=== PATIENT | female | born 1970 | race American Indian/Alaskan Native ===

== ENCOUNTER 2017-02-24 23:02 | Emergency (ER) | payer MEDICAID, OTHER ==
[2017-02-24 23:09] VITALS: BP 118/51
--- NOTE | 2017-02-24 23:12 | EDM.PDOC ---
ED HISTORY OF PRESENT ILLNESS - General Chief Complaint: Respiratory Problem Stated Complaint: AMB Time Seen by Provider: 02/24/17 23:09 Source of Information: Reports: Patient History Limitations: Reports: No limitations - History of Present Illness INITIAL COMMENTS - FREE TEXT/NARRATIVE: c/o sob tonight chest hurts especially when coughing some body aches feels feverish but not taken temp, also throat hurts too. EMS gave neb en route Pt's Sx relieved. - Related Data Allergies/ADRs: Allergies Allergy/AdvReac Type Severity Reaction Status Date / Time No Known Allergies Allergy Verified 02/24/17 23:02 Social & Family History - Tobacco Use Smoking Status *Q: Heavy Tobacco Smoker Years of Tobacco use: 10 Packs/Tins Daily: 1 - Caffeine Use Caffeine Use: Reports: Energy drinks - Recreational Drug Use Recreational Drug Use: No ED ROS GENERAL - Review of Systems Review Of Systems: ROS reveals no pertinent complaints other than HPI. ED EXAM, GENERAL - Physical Exam Exam: See Below Exam Limited By: No limitations General Appearance: alert, WD/WN, anxious, mild distress Ears: hearing grossly normal Throat/Mouth: Normal voice, No airway compromise Head: atraumatic Neck: non-tender, full range of motion Respiratory/Chest: no respiratory distress, no accessory muscle use, rhonchi, wheezing Cardiovascular: regular rate, rhythm GI/Abdominal: soft, non tender Neurological: alert, oriented, normal cognition, normal gait, no motor/sensory deficits Psychiatric: normal affect, normal mood, anxious Skin Exam: Warm, Dry Lymphatic: no adenopathy Course - Vital Signs Last Recorded V/S: Last Vital Signs Temp 35.9 C 02/24/17 23:03 Pulse 93 02/24/17 23:03 Resp 22 H 02/24/17 23:03 BP 118/51 L 02/24/17 23:03 Pulse Ox 96 02/24/17 23:03 - Orders/Labs/Meds Orders: Active Orders 24 hr Category Date Time Status EKG Documentation Completion [RC] STAT Care 02/24/17 23:06 Active CULTURE STREP A CONFIRMATION [RM] Stat Lab 02/24/17 23:06 Results STREP SCRN A RAPID W CULT CONF [] Stat Lab 02/24/17 23:06 Results methylPREDNISolone Sod Succ [Solu-MEDROL] Med 02/25/17 00:31 Once 125 mg IVPUSH ONETIME ONE Labs: Laboratory Tests 02/24/17 02/24/17 02/24/17 Range/Units 23:13 23:13 23:13 WBC 9.2 (5.0-10.0) 10^3/uL RBC 4.67 (4.2-5.4) 10^6/uL Hgb 10.7 L (12.0-16.0) g/dL Hct 35.6 L (37.0-47.0) % MCV 76.2 L (80-100) fL MCH 22.9 L (27.0-34.0) pg MCHC 30.1 L (33.0-35.0) g/dL Plt Count 389 (150-450) 10^3/uL Neut % (Auto) 64.3 (42.2-75.2) % Lymph % (Auto) 25.6 (20.5-50.1) % [place] % (Auto) 7.2 (2-8) % Eos % (Auto) 2.7 (1.0-3.0) % Baso % (Auto) 0.2 (0.0-1.0) % D-Dimer, Quantitative < 100 (0-400) ng/mL Sodium 142 (135-145) mmol/L Potassium 3.9 (3.6-5.0) mmol/L Chloride 105 (101-111) mmol/L Carbon Dioxide 28.0 (21.0-31.0) mmol/L Anion Gap 12.9 BUN 13 (7-18) mg/dL Creatinine 0.8 (0.6-1.3) mg/dL Est Cr Clr Drug Dosing 70.24 mL/min Estimated GFR (MDRD) > 60 BUN/Creatinine Ratio 16.25 Glucose 117 H (74-105) mg/dL Calcium 8.7 (8.4-10.2) mg/dl Total Bilirubin 0.3 (0.2-1.0) mg/dL AST 23 (10-42) IU/L ALT 18 (10-60) IU/L Alkaline Phosphatase 79 (42-121) IU/L Troponin I < 0.02 (0.00-0.02) ng/ml B-Natriuretic Peptide 13 (0-100) pg/ml Total Protein 7.5 (6.7-8.2) g/dl Albumin 3.6 (3.2-5.5) g/dl Globulin 3.9 Albumin/Globulin Ratio 0.92 - Re-Assessments/Exams Free Text/Narrative Re-Assessment/Exam: 02/25/17 00:31 results discussed with Pt who states she usually get IM steroids. also she forgot to take her neb machine to work tonight and asthma got worse. but feels better now. Departure - Departure Time of Disposition: 00:32 Disposition: Home, Self-Care 01 Condition: good Clinical Impression: Exacerbation of asthma Instructions: Shortness of Breath, [id number] Forms: ED Department Discharge Additional Instructions: 1) rest 2) continue meds 3) follow up at clinic or recheck as needed rx given: medrol dospak - My Orders Last 24 Hours: My Active Orders 02/24/17 23:06 EKG Documentation Completion [RC] STAT CULTURE STREP A CONFIRMATION [RM] Stat STREP SCRN A RAPID W CULT CONF [RM] Stat 02/25/17 00:31 methylPREDNISolone Sod Succ [Solu-MEDROL] 125 mg IVPUSH ONETIME ONE - Assessment/Plan Last 24 Hours: My Active Orders 02/24/17 23:06 EKG Documentation Completion [RC] STAT CULTURE STREP A CONFIRMATION [RM] Stat STREP SCRN A RAPID W CULT CONF [RM] Stat 02/25/17 00:31 methylPREDNISolone Sod Succ [Solu-MEDROL] 125 mg IVPUSH ONETIME ONE
[2017-02-24 23:40] LABS: CHLORIDE,CL 105 mmol/L (101-111); SODIUM,NA 142 mmol/L (135-145)
[2017-02-25] MEDS ORDERED: methylPREDNISolone Sodium Succinate 125 MG/2 ML SDV IVPUSH ONE (00:31)
--- NOTE | 2017-02-28 09:07 | EKG ---
02/24/2017 - YASIR DEAL - EKG is sinus rhythm with a rate of 92. Normal RI interval. There is a left axis deviation. EKG otherwise within normal limits. There are no signs of acute myocardial injury. [facility] /[id number]
== END 2017-02-25 00:44 | disposition home or self-care (01) ==
LOC: DL.ED 23:02
DX: J45.901 Unspecified asthma with (acute) exacerbation (principal); F17.210 Nicotine dependence, cigarettes, uncomplicated
CPT/HCPCS: 36415; 71010; 80053; 83880; 84484; 85025; 85379; 87081; 87430; 87804; 93005; 96374; 99285; J2930

== ENCOUNTER 2018-01-01 20:20 | Emergency (ER) | payer OTHER ==
--- NOTE | 2018-01-01 20:47 | EDM.PDOC ---
ED HPI GENERAL MEDICAL PROBLEM - General Chief Complaint: Respiratory Problem Stated Complaint: TROUBLE BREATHING AND HAS COPD [id number] Time Seen by Provider: 01/01/18 21:25 Source of Information: Reports: Patient History Limitations: Reports: No Limitations - History of Present Illness INITIAL COMMENTS - FREE TEXT/NARRATIVE: This 47 yo female patient reports to the ED with increased shortness of breath. The patient reports she has been taking her medications as prescribed, but has not been able to get on top of the shortness of breath. Onset: Today Duration: Constant Location: Reports: Chest Quality: Reports: Other Severity: Severe Improves with: Reports: Rest Worsens with: Reports: Movement Associated Symptoms: Reports: Cough, Shortness of Breath, Weakness - Related Data Allergies Allergy/AdvReac Type Severity Reaction Status Date / Time No Known Allergies Allergy Verified 01/01/18 21:31 Home Meds: Home Meds Albuterol [Proair HFA] 2 puff INH Q4HR PRN 01/01/18 [History] Albuterol [Proventil Neb Soln] 2.5 mg .XX Q4HR PRN 01/01/18 [History] Mometasone/Formoterol [Dulera 200-5 MCG] 2 puff INH BID 01/01/18 [History] Past Medical History HEENT History: Reports: None Cardiovascular History: Reports: None Respiratory History: Reports: COPD Gastrointestinal History: Reports: None 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 History: Reports: None 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 ED EXAM, GENERAL - Physical Exam Exam: See Below Exam Limited By: No Limitations General Appearance: Alert, WD/WN Eye Exam: Bilateral Eye: EOMI, Normal Inspection, PERRL Ears: Normal External Exam, Normal Canal, Hearing Grossly Normal, Normal TMs Nose: Normal Inspection, Normal Mucosa, No Blood Throat/Mouth: Normal Inspection, Normal Lips, Normal Teeth, Normal Gums, Normal Oropharynx, Normal Voice, No Airway Compromise Head: Atraumatic, Normocephalic Neck: Normal Inspection, Supple, Non-Tender, Full Range of Motion Respiratory/Chest: Decreased Breath Sounds, Rhonchi, Wheezing Cardiovascular: Normal Peripheral Pulses, Regular Rate, Rhythm, No Edema, No Gallop, No JVD, No Murmur, No Rub GI/Abdominal: Normal Bowel Sounds, Soft, Non-Tender, No Organomegaly, No Distention, No Abnormal Bruit, No Mass (Female) Exam: Deferred Rectal (Female) Exam: Deferred Back Exam: Normal Inspection, Full Range of Motion, NT Extremities: Normal Inspection, Normal Range of Motion, Non-Tender, Normal Capillary Refill, No Pedal Edema Neurological: Alert, Oriented, CN II-XII Intact, Normal Cognition, Normal Gait, Normal Reflexes, No Motor/Sensory Deficits Psychiatric: Normal Affect, Normal Mood Skin Exam: Warm, Dry, Intact, Normal Color, No Rash Lymphatic: No Adenopathy Course - Vital Signs Last Recorded V/S: Last Vital Signs Temp 36.3 C 01/01/18 21:57 Pulse 89 01/01/18 21:57 Resp 20 01/01/18 21:57 BP 130/78 01/01/18 21:57 Pulse Ox 99 01/01/18 21:57 - Orders/Labs/Meds Orders: Active Orders 24 hr Category Date Time Status RT Aerosol Therapy [RC] ASDIRECTED Care 01/01/18 21:34 Active CULTURE BLOOD [BC] Stat Lab 01/01/18 20:44 Received CULTURE BLOOD [BC] Stat Lab 01/01/18 20:50 Received Blood Culture x2 Reflex Set [OM.PC] Stat Oth 01/01/18 20:34 Ordered Labs: Laboratory Tests 01/01/18 01/01/18 01/01/18 Range/Units 20:44 20:44 20:44 WBC 9.2 (5.0-10.0) 10^3/uL RBC 4.37 (4.2-5.4) 10^6/uL Hgb 10.3 L (12.0-16.0) g/dL Hct 34.1 L (37.0-47.0) % MCV 78.0 L (80-100) fL MCH 23.6 L (27.0-34.0) pg MCHC 30.2 L (33.0-35.0) g/dL Plt Count 351 (150-450) 10^3/uL Neut % (Auto) 70.5 (42.2-75.2) % Lymph % (Auto) 20.4 L (20.5-50.1) % [place] % (Auto) 4.8 (2-8) % Eos % (Auto) 4.0 H (1.0-3.0) % Baso % (Auto) 0.3 (0.0-1.0) % Sodium 139 (135-145) mmol/L Potassium 3.6 (3.6-5.0) mmol/L Chloride 106 (101-111) mmol/L Carbon Dioxide 27.0 (21.0-31.0) mmol/L Anion Gap 9.6 BUN 8 (7-18) mg/dL Creatinine 0.7 (0.6-1.3) mg/dL Est Cr Clr Drug Dosing 80.27 mL/min Estimated GFR (MDRD) > 60 BUN/Creatinine Ratio 11.42 Glucose 101 (74-105) mg/dL Lactic Acid 1.6 (0.5-2.2) mmol/L Calcium 8.0 L (8.4-10.2) mg/dl Total Bilirubin 0.1 L (0.2-1.0) mg/dL AST 23 (10-42) IU/L ALT 18 (10-60) IU/L Alkaline Phosphatase 74 (42-121) IU/L Total Protein 7.2 (6.7-8.2) g/dl Albumin 3.4 (3.2-5.5) g/dl Globulin 3.8 Albumin/Globulin Ratio 0.89 Meds: Medications Discontinued Medications Generic Name Dose Route Start Last Admin Trade Name Freq PRN Reason Stop Dose Admin Albuterol/Ipratropium 3 ml 01/01/18 21:34 01/01/18 21:37 Duoneb 3.0-0.5 Mg/3 Ml NEB 01/01/18 21:35 3 ml ONETIME ONE Administration Ceftriaxone Sodium 1 gm 01/01/18 21:35 01/01/18 21:40 Rocephin IVPUSH 01/01/18 21:36 1 gm ONETIME ONE Administration Methylprednisolone Sodium Succinate 125 mg 01/01/18 21:35 01/01/18 21:42 Solu-Medrol IVPUSH 01/01/18 21:36 125 mg ONETIME ONE Administration Departure - Departure Time of Disposition: 22:05 Disposition: Home, Self-Care 01 Condition: Fair Clinical Impression: COPD exacerbation - Discharge Information Instructions: Chronic Obstructive Pulmonary Disease Exacerbation, [id number] Forms: ED Department Discharge Care Plan Goals: The patient was advised of the examination, lab and x-ray results during the visit. The patient was given a Duoneb treatment, IV Rocephin and IV SoluMedrol while in the ED. The patient was discharged with a script for a Z-pack and Medrol Dose pack to take as directed. The patient should continue with her current medications as prescribed. If the patient has any additional symptom or concerns, the patient should follow-up with her primary care facility or return to the emergency department. - My Orders Last 24 Hours: My Active Orders 01/01/18 20:34 Blood Culture x2 Reflex Set [OM.PC] Stat 01/01/18 20:44 CULTURE BLOOD [BC] Stat 01/01/18 20:50 CULTURE BLOOD [BC] Stat 01/01/18 21:34 RT Aerosol Therapy [RC] ASDIRECTED - Assessment/Plan Last 24 Hours: My Active Orders 01/01/18 20:34 Blood Culture x2 Reflex Set [OM.PC] Stat 01/01/18 20:44 CULTURE BLOOD [BC] Stat 01/01/18 20:50 CULTURE BLOOD [BC] Stat 01/01/18 21:34 RT Aerosol Therapy [RC] ASDIRECTED
[2018-01-01 21:16] LABS: CHLORIDE,CL 106 mmol/L (101-111); SODIUM,NA 139 mmol/L (135-145)
[2018-01-01] MEDS ORDERED: Albuterol/Ipratropium 3.0-0.5 MG/3 ML Neb Soln NEB ONE (21:34)
[2018-01-01] MEDS ORDERED: cefTRIAXone 1 GM Vial IVPUSH ONE (21:35)
[2018-01-01] MEDS ORDERED: methylPREDNISolone Sodium Succinate 125 MG/2 ML SDV IVPUSH ONE (21:35)
[2018-01-01 22:14] VITALS: BP 124/60
== END 2018-01-01 22:14 | disposition home or self-care (01) ==
LOC: DL.ED 20:20
DX: J44.1 Chronic obstructive pulmonary disease with (acute) exacerbation (principal); F17.210 Nicotine dependence, cigarettes, uncomplicated
CPT/HCPCS: 36415; 71046; 80053; 83605; 85025; 87040; 87804; 94640; 96374; 96375; 99285; J0696; J2930

== ENCOUNTER 2019-05-16 18:58 | Emergency (ER) | payer OTHER ==
[2019-05-16 19:09] VITALS: BP 122/58
[2019-05-16] MEDS ORDERED: methylPREDNISolone Sodium Succinate 125 MG/2 ML SDV IVPUSH ONE (19:30)
[2019-05-16] MEDS ORDERED: Albuterol/Ipratropium 3.0-0.5 MG/3 ML Neb Soln NEB ONE (19:31)
--- NOTE | 2019-05-16 20:07 | EDM.PDOC ---
ED HPI GENERAL MEDICAL PROBLEM - General Chief Complaint: Respiratory Problem Stated Complaint: TROUBLE BREATHING Time Seen by Provider: 05/16/19 19:10 Source of Information: Reports: Patient History Limitations: Reports: No Limitations - History of Present Illness INITIAL COMMENTS - FREE TEXT/NARRATIVE: ED with c/o difficulty breathing, started this bello around 6pm. Asthma worse this time of year. Started tonight while working at [employer]. Tried albuterol inhaler but was at end of puffer. Has additional inhalers at home not at work . Cough at night. No fever or chills. - Related Data Allergies Allergy/AdvReac Type Severity Reaction Status Date / Time No Known Allergies Allergy Verified 01/01/18 21:31 Home Meds: Home Meds Albuterol [Proair HFA] 2 puff INH Q4HR PRN 01/01/18 [History] Albuterol [Proventil Neb Soln] 2.5 mg .XX Q4HR PRN 01/01/18 [History] Mometasone/Formoterol [Dulera 200-5 MCG] 2 puff INH BID 01/01/18 [History] Doxycycline Monohydrate 100 mg PO BID #14 capsule 09/22/18 [Rx] predniSONE [Prednisone] 5 mg PO DAILY 10 Days #55 tablet 09/22/18 [Rx] Gabapentin [Neurontin] 300 mg PO DAILY 05/16/19 [History] Tiotropium [Spiriva HandiHaler] 1 inh INH DAILY 05/16/19 [History] Past Medical History HEENT History: Reports: None Cardiovascular History: Reports: None Respiratory History: Reports: Asthma, COPD Gastrointestinal History: Reports: None 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 History: Reports: 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: Musculoskeletal History: Reports: Back Pain, Chronic Neurological History: Reports: None Psychiatric History: Reports: None Endocrine/Metabolic History: Reports: None Immunologic History: Reports: None Oncologic (Cancer) History: Reports: None Dermatologic History: Reports: None - Past Surgical History Respiratory Surgical History: Reports: None Social & Family History - Family History Family Medical History: Noncontributory - Tobacco Use Smoking Status *Q: Current Every Day Smoker Years of Tobacco use: 32 Packs/Tins Daily: 0.3 Used Tobacco, but Quit: No Second Hand Smoke Exposure: Yes - Caffeine Use Caffeine Use: Reports: Energy Drinks Caffeine Use Comment: States 3 NoS energy drinks during an 8hr work day. - Recreational Drug Use Recreational Drug Use: No ED ROS GENERAL - Review of Systems Review Of Systems: ROS reveals no pertinent complaints other than HPI. ED EXAM, GENERAL - Physical Exam Exam: See Below Exam Limited By: No Limitations General Appearance: Alert, Mild Distress, Obese Eye Exam: Bilateral Eye: EOMI Ears: Normal External Exam Nose: Normal Inspection Throat/Mouth: Normal Inspection Head: Atraumatic, Normocephalic Neck: Normal Inspection, Full Range of Motion Respiratory/Chest: Wheezing, Prolonged Expiration. No: Crackles, Rales Cardiovascular: Normal Peripheral Pulses, Regular Rate, Rhythm GI/Abdominal: Normal Bowel Sounds, Soft Extremities: Normal Inspection Neurological: Alert, Oriented Skin Exam: Warm, Dry, Intact, Normal Color Course - Vital Signs Last Recorded V/S: Last Vital Signs Temp 97.8 F 05/16/19 19:08 Pulse 90 05/16/19 19:08 Resp 16 05/16/19 19:08 BP 122/58 L 05/16/19 19:08 Pulse Ox 97 05/16/19 19:08 - Orders/Labs/Meds Orders: Active Orders 24 hr Category Date Time Status RT Aerosol Therapy [RC] ASDIRECTED Care 05/16/19 19:31 Active Labs: Laboratory Tests 05/16/19 05/16/19 Range/Units 19:46 19:46 WBC 9.9 (5.0-10.0) 10^3/uL RBC 5.20 (4.2-5.4) 10^6/uL Hgb 12.4 D (12.0-16.0) g/dL Hct 40.3 (37.0-47.0) % MCV 77.5 L (80-100) fL MCH 23.8 L (27.0-34.0) pg MCHC 30.8 L (33.0-35.0) g/dL Plt Count 348 (150-450) 10^3/uL Neut % (Auto) 62.7 (42.2-75.2) % Lymph % (Auto) 24.9 (20.5-50.1) % [place] % (Auto) 7.3 (2-8) % Eos % (Auto) 4.7 H (1.0-3.0) % Baso % (Auto) 0.4 (0.0-1.0) % Sodium 138 (135-145) mmol/L Potassium 3.7 (3.6-5.0) mmol/L Chloride 105 (101-111) mmol/L Carbon Dioxide 25.0 (21.0-31.0) mmol/L Anion Gap 11.7 BUN 12 (7-18) mg/dL Creatinine 0.7 (0.6-1.3) mg/dL Est Cr Clr Drug Dosing 78.58 mL/min Estimated GFR (MDRD) > 60 BUN/Creatinine Ratio 17.14 Glucose 89 (74-105) mg/dL Calcium 8.4 (8.4-10.2) mg/dl Total Bilirubin 0.5 (0.2-1.0) mg/dL AST 32 (10-42) IU/L ALT 28 (10-60) IU/L Alkaline Phosphatase 87 (42-121) IU/L Total Protein 7.5 (6.7-8.2) g/dl Albumin 3.7 (3.2-5.5) g/dl Globulin 3.8 Albumin/Globulin Ratio 0.97 Meds: Medications Discontinued Medications Generic Name Dose Route Start Last Admin Trade Name Freq PRN Reason Stop Dose Admin Albuterol/Ipratropium 3 ml 05/16/19 19:31 05/16/19 19:47 Duoneb 3.0-0.5 Mg/3 Ml NEB 05/16/19 19:32 3 ml ONETIME ONE Administration Methylprednisolone Sodium Succinate 125 mg 05/16/19 19:30 05/16/19 19:48 Solu-Medrol IVPUSH 05/16/19 19:31 125 mg ONETIME ONE Administration - Radiology Interpretation Free Text/Narrative:: [facility] Final Radiology Report Call: [phone] assistance Online chat: [email or web address] Name: YASIR DEAL Age: 49Years F Date: 05/16/2019 SSN: -- : 1970 Study: XR CHEST 2 VIEWS FRONTAL & LAT Requesting Physician: JASON HUTSON Images: 2 Addl Studies: Provided Clinical History: Contrast: Contrast Medium: Contrast Amount: Contrast Method: CONFIDENTIALITY STATEMENT This report is intended only for use by the referring physician, and only in accordance with law. If you received this in error, call [phone]. Page 1 of 1 EXAM: XR Chest, 2 Views EXAM DATE/TIME: 05/16/2019 7:51 PM CLINICAL HISTORY: 49 years old, female; Other: SOB, asthma TECHNIQUE: Imaging protocol: XR of the chest, 2 views. COMPARISON: CR Chest 2V 01/01/2018 8:54 PM FINDINGS: Lungs: Unremarkable. No consolidation. Pleural space: Unremarkable. No pleural effusion. No pneumothorax. Heart/Mediastinum: Unremarkable. No cardiomegaly. Bones/joints: Unremarkable. IMPRESSION: No acute findings. There is no significant interval change. Thank you for allowing us to participate in the care of your patient. Dictated and Authenticated by: Gus Noguera MD 05/16/2019 8:13 PM Central Time ([place] & [place]) - Re-Assessments/Exams Free Text/Narrative Re-Assessment/Exam: 05/17/19 02:07 Breathing improved post neb Departure - Departure Time of Disposition: 20:25 Disposition: Home, Self-Care 01 Condition: Good Clinical Impression: COPD exacerbation - Discharge Information *PRESCRIPTION DRUG MONITORING PROGRAM REVIEWED*: No *COPY OF PRESCRIPTION DRUG MONITORING REPORT IN PATIENT KATHARINE: No Instructions: Chronic Obstructive Pulmonary Disease, [id number] Referrals: PCP,None [Primary Care Provider] - Forms: ED Department Discharge Additional Instructions: Continue home medications albuterol inhaler 2 puffs every 4 hours as needed avoid smoke filled areas prednisone 10mg 4 x 2 days, 3 x 2days, 2x2 days, 1 x 2 days follow up if symptoms worsen - My Orders Last 24 Hours: My Active Orders 05/16/19 19:31 RT Aerosol Therapy [RC] ASDIRECTED - Assessment/Plan Last 24 Hours: My Active Orders 05/16/19 19:31 RT Aerosol Therapy [RC] ASDIRECTED
[2019-05-16 20:13] LABS: ANION GAP 11.7; CHLORIDE,CL 105 mmol/L (101-111); SODIUM,NA 138 mmol/L (135-145)
== END 2019-05-16 20:27 | disposition home or self-care (01) ==
LOC: DL.ED 18:58
DX: J44.1 Chronic obstructive pulmonary disease with (acute) exacerbation (principal); F17.210 Nicotine dependence, cigarettes, uncomplicated; Z79.899 Other long term (current) drug therapy
CPT/HCPCS: 36415; 71046; 80053; 85025; 94640; 96374; 99284-25; J2930; J7620-GY

== ENCOUNTER 2019-07-25 20:28 | Emergency (ER) | payer OTHER ==
[2019-07-25] MEDS ORDERED: Polymyxin B/Trimethoprim 10 ML Bottle EYEBOTH ONE (20:29)
[2019-07-25] MEDS ORDERED: Fluorescein 1 MG Ophth Strip EYEBOTH ONE (20:48)
[2019-07-25] MEDS ORDERED: Tetracaine HCl/PF 0.5% 4 ML Bottle EYEBOTH ONE (20:49)
[2019-07-26] MEDS ORDERED: Polymyxin B/Trimethoprim 10 ML Bottle ONE (00:20)
--- NOTE | 2019-07-26 00:25 | EDM.PDOC ---
ED HPI GENERAL MEDICAL PROBLEM - General Chief Complaint: Eye Problems Stated Complaint: EYE PROBLEM Time Seen by Provider: 07/26/19 00:21 Source of Information: Reports: Patient History Limitations: Reports: No Limitations - History of Present Illness INITIAL COMMENTS - FREE TEXT/NARRATIVE: itchy eye tonight, riight then started left, feels scratchy unsure if something in it, now spreading to left, scratchy sensation. 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 Right Eye Pain Score (Numeric/FACES): 3 - Related Data Allergies Allergy/AdvReac Type Severity Reaction Status Date / Time No Known Allergies Allergy Verified 07/25/19 20:42 Home Meds: Home Meds Albuterol [Proair HFA] 2 puff INH Q4HR PRN 01/01/18 [History] Albuterol [Proventil Neb Soln] 2.5 mg .XX Q4HR PRN 01/01/18 [History] Mometasone/Formoterol [Dulera 200-5 MCG] 2 puff INH BID 01/01/18 [History] Doxycycline Monohydrate 100 mg PO BID #14 capsule 09/22/18 [Rx] predniSONE [Prednisone] 5 mg PO DAILY 10 Days #55 tablet 09/22/18 [Rx] Gabapentin [Neurontin] 300 mg PO DAILY 05/16/19 [History] Tiotropium [Spiriva HandiHaler] 1 inh INH DAILY 05/16/19 [History] Past Medical History HEENT History: Reports: None Cardiovascular History: Reports: None Respiratory History: Reports: Asthma, COPD Gastrointestinal History: Reports: None 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 History: Reports: 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: Musculoskeletal History: Reports: Back Pain, Chronic Neurological History: Reports: None Psychiatric History: Reports: None Endocrine/Metabolic History: Reports: None Immunologic History: Reports: None Oncologic (Cancer) History: Reports: None Dermatologic History: Reports: None - Past Surgical History Respiratory Surgical History: Reports: None Social & Family History - Family History Family Medical History: Noncontributory - Tobacco Use Smoking Status *Q: Current Every Day Smoker Years of Tobacco use: 31 Packs/Tins Daily: 0.2 Second Hand Smoke Exposure: Yes - Caffeine Use Caffeine Use: Reports: Energy Drinks Caffeine Use Comment: States 3 NoS energy drinks during an 8hr work day. - Recreational Drug Use Recreational Drug Use: No ED ROS GENERAL - Review of Systems Review Of Systems: ROS reveals no pertinent complaints other than HPI. ED EXAM GENERAL W FULL EYE - Physical Exam Exam: See Below Exam Limited By: No Limitations General Appearance: Alert, Mild Distress Eye Exam: Right Eye: Conjunctival Injection (clooudy discharge bilateral greater right), Bilateral Eye: EOMI Eyelids: Right: Edema, Erythema, Lid Everted for Exam Conjunctiva & Sclera: Bilateral: Injected (right greater) Cornea Exam: Right: Examined with Flourescein, Bilateral: Normal Appearance Extraocular Movements: Bilateral: Intact Pupils: Normal Accommodation Pupillary Size: Bilateral: 4 mm Pupillary Reaction: Bilateral: Brisk Anterior Chamber: Right: Normal Appearance Ears: Normal External Exam Nose: No: Nasal Drainage Throat/Mouth: Normal Inspection Head: Atraumatic, Normocephalic Neck: Full Range of Motion Cardiovascular: Regular Rate, Rhythm ED EYE w/ Add Procedure - Eye Procedure Alcaine Drops Administered: Yes Course - Vital Signs Last Recorded V/S: Last Vital Signs Temp 96.9 F 07/26/19 00:35 Pulse 91 07/26/19 00:35 Resp 16 07/26/19 00:35 BP 151/80 H 07/26/19 00:35 Pulse Ox 94 L 07/26/19 00:35 - Orders/Labs/Meds Meds: Medications Discontinued Medications Generic Name Dose Route Start Last Admin Trade Name Bev PRN Reason Stop Dose Admin Fluorescein Sodium 1 mg 07/25/19 20:48 07/25/19 22:55 Ful-Sharmaine EYEBOTH 07/25/19 20:49 1 mg ONETIME ONE Administration Polymyxin/Trimethoprim Sulfate Confirm 07/26/19 00:20 07/26/19 00:53 Polytrim Ophth Soln Administered 07/26/19 00:21 Not Given Dose 10 ml .ROUTE .STK-MED ONE Polymyxin/Trimethoprim Sulfate 10 ml 07/25/19 20:29 Polytrim Ophth Soln EYEBOTH 07/25/19 20:30 .STK-MED ONE Tetracaine HCl 1 ml 07/25/19 20:49 07/25/19 22:55 Tetracaine 0.5% Steri-Unit Glory EYEBOTH 07/25/19 20:50 2 drop ASDIRECTED ONE Administration Departure - Departure Time of Disposition: 00:23 Disposition: Home, Self-Care 01 Condition: Good Clinical Impression: Eye irritation Conjunctivitis Qualifiers: Conjunctivitis type: acute Acute conjunctivitis type: unspecified Laterality: bilateral Qualified Code(s): H10.33 - Unspecified acute conjunctivitis, bilateral - Discharge Information *PRESCRIPTION DRUG MONITORING PROGRAM REVIEWED*: No Forms: ED Department Discharge Care Plan Goals: tylenol or ibuprofen for discomfort cool compress to eyes plymyxin eye drops 3 drops three times dialy for 5 days eye clinic follow up if pain in am
[2019-07-26 00:52] VITALS: BP 151/80
== END 2019-07-26 00:45 | disposition home or self-care (01) ==
LOC: DL.ED 20:28
DX: H10.33 Unspecified acute conjunctivitis, bilateral (principal); J44.9 Chronic obstructive pulmonary disease, unspecified; F17.210 Nicotine dependence, cigarettes, uncomplicated; Z79.899 Other long term (current) drug therapy
CPT/HCPCS: 99283; A9270-GY

== ENCOUNTER 2019-09-02 16:07 | Emergency (ER) | payer OTHER ==
--- NOTE | 2019-09-02 16:15 | EDM.PDOC ---
ED HPI GENERAL MEDICAL PROBLEM - General Chief Complaint: Lower Extremity Injury/Pain Stated Complaint: DROPPED A 5 PD [employer] ON FOOT Time Seen by Provider: 09/02/19 16:14 Source of Information: Reports: Patient, Old Records, RN, RN Notes Reviewed History Limitations: Reports: No Limitations - History of Present Illness Onset: Today Duration: Constant Right Toe-Middle Pain Score (Numeric/FACES): 10 - Related Data Allergies Allergy/AdvReac Type Severity Reaction Status Date / Time No Known Allergies Allergy Verified 09/02/19 16:14 Home Meds: Home Meds Albuterol [Proair HFA] 2 puff INH Q4HR PRN 01/01/18 [History] Albuterol [Proventil Neb Soln] 2.5 mg .XX Q4HR PRN 01/01/18 [History] Mometasone/Formoterol [Dulera 200-5 MCG] 2 puff INH BID 01/01/18 [History] Doxycycline Monohydrate 100 mg PO BID #14 capsule 09/22/18 [Rx] Gabapentin [Neurontin] 300 mg PO DAILY 05/16/19 [History] Tiotropium [Spiriva HandiHaler] 1 inh INH DAILY 05/16/19 [History] Past Medical History HEENT History: Reports: None Cardiovascular History: Reports: None Respiratory History: Reports: Asthma, COPD Gastrointestinal History: Reports: None 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 History: Reports: None 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 Review of Systems - Review of Systems Review Of Systems: ROS reveals no pertinent complaints other than HPI. ED EXAM, GENERAL - Physical Exam Exam: See Below Exam Limited By: No Limitations General Appearance: Alert, No Apparent Distress Head: Atraumatic, Normocephalic Respiratory/Chest: No Respiratory Distress Cardiovascular: Normal Peripheral Pulses Neurological: Alert, Oriented, No Motor/Sensory Deficits Psychiatric: Tearful Skin Exam: Warm, Dry, Intact, Normal Color, No Rash Course - Vital Signs Last Recorded V/S: Last Vital Signs Temp 98.3 F 09/02/19 16:09 Pulse 94 09/02/19 16:09 Resp 20 09/02/19 16:09 BP 148/85 H 09/02/19 16:09 Pulse Ox 97 09/02/19 16:09 - Orders/Labs/Meds Orders: Active Orders 24 hr Category Date Time Status Vaccines to be Administered [RC] PER UNIT ROUTINE Care 09/02/19 16:35 Ordered Foot Comp Min 3V Rt [CR] Urgent Exams 09/02/19 16:17 Taken Bacitracin [Bacitracin Oint 1 GM] Med 09/02/19 16:35 Once 1 dose TOP ONETIME ONE Diphth,Pertuss(Acell),Tet Vac [Adacel] Med 09/02/19 16:34 Once 0.5 ml IM .ONCE ONE Ibuprofen [Motrin] Med 09/02/19 16:36 Once 800 mg PO ONETIME ONE traMADol [Ultram] Med 09/02/19 16:36 Once 50 mg PO ONETIME ONE DME for Discharge [COMM] Routine Oth 09/02/19 16:35 Ordered Medication Orders Bacitracin (Bacitracin Oint 1 Gm) 1 dose TOP ONETIME ONE Stop: 09/02/19 16:36 Diphtheria/Tetanus/Acell Pertussis (Adacel) 0.5 ml IM .ONCE ONE Stop: 09/02/19 16:35 Ibuprofen (Motrin) 800 mg PO ONETIME ONE Stop: 09/02/19 16:37 Meds: Medications Generic Name Dose Route Start Last Admin Trade Name Juanq PRN Reason Stop Dose Admin Bacitracin 1 dose 09/02/19 16:35 Bacitracin Oint 1 Gm TOP 09/02/19 16:36 ONETIME ONE Diphtheria/Tetanus/Acell Pertussis 0.5 ml 09/02/19 16:34 Adacel IM 09/02/19 16:35 .ONCE ONE Ibuprofen 800 mg 09/02/19 16:36 Motrin PO 09/02/19 16:37 ONETIME ONE - Radiology Interpretation Free Text/Narrative:: [facility] [place] [facility] Final Radiology Report Call: [phone] assistance Online chat: [email or web address] Name: YASIR DEAL Age: 49Years F Date: 09/02/2019 SSN: -- : [id number] Study: XR FOOT COMPLETE MIN 3 VIEWS RIGHT Requesting Physician: DIEGO SEALS Images: 3 Addl Studies: Provided Clinical History: Contrast: Contrast Medium: Contrast Amount: Contrast Method: CONFIDENTIALITY STATEMENT This report is intended only for use by the referring physician, and only in accordance with law. If you received this in error, call [phone]. Page 1 of 1 PROCEDURE INFORMATION: Exam: XR Right Foot Complete Exam date and time: 09/02/2019 4:24 PM Clinical history: 49 years old, female; Other: Dropped wood on forefoot/toes--- pain TECHNIQUE: Imaging protocol: XR Right foot. Views: 3 or more views. COMPARISON: No relevant prior studies available. FINDINGS: Bones/joints: Calcaneal spurs are demonstrated at the origin of the plantar fascia and the insertion of the Achilles tendon. The alignment of the joints is anatomic and the joint spaces are maintained. There is no evidence of acute fracture. Soft tissues: No soft tissue swelling is identified. IMPRESSION: No acute abnormality. Thank you for allowing us to participate in the care of your patient. Dictated and Authenticated by: Thony Leigh MD 09/02/2019 4:34 PM Central Time ([place] & [place]) Departure - Departure Time of Disposition: 16:37 Disposition: Home, Self-Care 01 Condition: Good Clinical Impression: Contusion of foot including toes Qualifiers: Encounter type: initial encounter Laterality: right Qualified Code(s): S90.31XA - Contusion of right foot, initial encounter; S90.121A - Contusion of right lesser toe(s) without damage to nail, initial encounter - Discharge Information *PRESCRIPTION DRUG MONITORING PROGRAM REVIEWED*: No *COPY OF PRESCRIPTION DRUG MONITORING REPORT IN PATIENT KATHARINE: No Instructions: Foot Contusion, [id number] Forms: ED Department Discharge Additional Instructions: Rest, ice pack, and elevate right foot to reduce pain and swelling. Use crutches as needed to take some of the weight off the right foot/toes. Use over the counter Acetaminophen (Tylenol) and/or Ibuprofen (Motrin/Advil) as needed for pain. Follow directions on bottle/package for dosing and instructions. Follow up in clinic for recheck if needed. - My Orders Last 24 Hours: My Active Orders 09/02/19 16:17 Foot Comp Min 3V Rt [CR] Urgent 09/02/19 16:34 Diphth,Pertuss(Acell),Tet Vac [Adacel] 0.5 ml IM .ONCE ONE 09/02/19 16:35 Vaccines to be Administered [RC] PER UNIT ROUTINE Bacitracin [Bacitracin Oint 1 GM] 1 dose TOP ONETIME ONE DME for Discharge [COMM] Routine 09/02/19 16:36 Ibuprofen [Motrin] 800 mg PO ONETIME ONE traMADol [Ultram] 50 mg PO ONETIME ONE - Assessment/Plan Last 24 Hours: My Active Orders 09/02/19 16:17 Foot Comp Min 3V Rt [CR] Urgent 09/02/19 16:34 Diphth,Pertuss(Acell),Tet Vac [Adacel] 0.5 ml IM .ONCE ONE 09/02/19 16:35 Vaccines to be Administered [RC] PER UNIT ROUTINE Bacitracin [Bacitracin Oint 1 GM] 1 dose TOP ONETIME ONE DME for Discharge [COMM] Routine 09/02/19 16:36 Ibuprofen [Motrin] 800 mg PO ONETIME ONE traMADol [Ultram] 50 mg PO ONETIME ONE
[2019-09-02 16:23] VITALS: BP 148/85; PULSE 94
[2019-09-02] MEDS ORDERED: Diphtheria,Pertussis(Acell),Tetanus Vaccine 0.5 ML SDV IM ONE (16:34)
[2019-09-02] MEDS ORDERED: Bacitracin Oint 1 GM U/D Packet TOP ONE (16:35)
[2019-09-02] MEDS ORDERED: traMADol 50 MG Tab PO ONE (16:36)
[2019-09-02] MEDS ORDERED: Ibuprofen 800 MG Tab PO ONE (16:36)
== END 2019-09-02 17:06 | disposition home or self-care (01) ==
LOC: DL.ED 16:07
DX: S90.31XA Contusion of right foot, initial encounter (principal); S90.121A Contusion of right lesser toe(s) without damage to nail, initial encounter; J44.9 Chronic obstructive pulmonary disease, unspecified; Z79.899 Other long term (current) drug therapy; Z79.51 Long term (current) use of inhaled steroids; W20.8XXA Other cause of strike by thrown, projected or falling object, initial encounter; Y93.89 Activity, other specified
CPT/HCPCS: 73630; 90471; 90715; 99283; A9270

== ENCOUNTER 2020-05-21 21:09 | Emergency (ER) | payer OTHER ==
[2020-05-21 21:28] VITALS: BP 126/82; PULSE 100
--- NOTE | 2020-05-21 22:05 | EDM.PDOC ---
ED HPI GENERAL MEDICAL PROBLEM - General Chief Complaint: Respiratory Problem Stated Complaint: BREATHING, SHE HAS COPD...INHALER ISNT WORKING PT. Time Seen by Provider: 05/21/20 21:45 Source of Information: Reports: Patient History Limitations: Reports: No Limitations - History of Present Illness INITIAL COMMENTS - FREE TEXT/NARRATIVE: This 50 yo female patient reports to the ED with increased shortness of breath over the past 3 days. The patient reports she has tried her home treatments (inhalers and neb treatments) with little to no symptom relief. The patient reports she has a history of COPD and has had similar episodes in the past requiring her to get steroids. Duration: Day(s):, Constant, Getting Worse Location: Reports: Chest Quality: Reports: Other Severity: Moderate Improves with: Reports: None Worsens with: Reports: None Context: Reports: Other Associated Symptoms: Reports: Shortness of Breath - Related Data Allergies Allergy/AdvReac Type Severity Reaction Status Date / Time No Known Allergies Allergy Verified 05/21/20 21:29 Home Meds: Home Meds Albuterol [Proair HFA] 2 puff INH Q4HR PRN 01/01/18 [History] Albuterol [Proventil Neb Soln] 2.5 mg .XX Q4HR PRN 01/01/18 [History] Mometasone/Formoterol [Dulera 200-5 MCG] 2 puff INH BID 01/01/18 [History] Gabapentin [Neurontin] 300 mg PO DAILY 05/16/19 [History] Tiotropium [Spiriva HandiHaler] 1 inh INH DAILY 05/16/19 [History] Past Medical History HEENT History: Reports: None Cardiovascular History: Reports: None Respiratory History: Reports: Asthma, COPD Gastrointestinal History: Reports: None 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 History: Reports: 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: Musculoskeletal History: Reports: Back Pain, Chronic Neurological History: Reports: None Psychiatric History: Reports: None Endocrine/Metabolic History: Reports: None Immunologic History: Reports: None Oncologic (Cancer) History: Reports: None Dermatologic History: Reports: None - Past Surgical History Respiratory Surgical History: Reports: None Social & Family History - Family History Family Medical History: Noncontributory - Tobacco Use Smoking Status *Q: Current Every Day Smoker Years of Tobacco use: 25 Packs/Tins Daily: 0.2 Second Hand Smoke Exposure: Yes - Caffeine Use Caffeine Use: Reports: Energy Drinks Caffeine Use Comment: States 3 NoS energy drinks during an 8hr work day. - Recreational Drug Use Recreational Drug Use: No ED ROS GENERAL - Review of Systems Review Of Systems: Comprehensive ROS is negative, except as noted in HPI. ED EXAM, GENERAL - Physical Exam Exam: See Below Exam Limited By: No Limitations General Appearance: Alert, WD/WN, Moderate Distress, Obese Eye Exam: Bilateral Eye: EOMI, Normal Inspection, PERRL Ears: Normal External Exam, Normal Canal, Hearing Grossly Normal, Normal TMs Nose: Normal Inspection, Normal Mucosa, No Blood Throat/Mouth: Normal Inspection, Normal Lips, Normal Teeth, Normal Gums, Normal Oropharynx, Normal Voice, No Airway Compromise Head: Atraumatic, Normocephalic Neck: Normal Inspection, Supple, Non-Tender, Full Range of Motion Respiratory/Chest: No Respiratory Distress, Lungs Clear, Normal Breath Sounds, No Accessory Muscle Use, Chest Non-Tender Cardiovascular: Normal Peripheral Pulses, Regular Rate, Rhythm, No Edema, No Gallop, No JVD, No Murmur, No Rub GI/Abdominal: Normal Bowel Sounds, Soft, Non-Tender, No Organomegaly, No Distention, No Abnormal Bruit, No Mass (Female) Exam: Deferred Rectal (Female) Exam: Deferred Back Exam: Normal Inspection, Full Range of Motion, NT Extremities: Normal Inspection, Normal Range of Motion, Non-Tender, Normal Capillary Refill, No Pedal Edema Neurological: Alert, Oriented, CN II-XII Intact, Normal Cognition, Normal Gait, Normal Reflexes, No Motor/Sensory Deficits Psychiatric: Normal Affect, Normal Mood Skin Exam: Warm, Dry, Intact, Normal Color, No Rash Lymphatic: No Adenopathy Course - Vital Signs Last Recorded V/S: Last Vital Signs Temp 36.6 C 05/21/20 21:24 Pulse 100 05/21/20 21:24 Resp 18 05/21/20 21:24 BP 126/82 05/21/20 21:24 Pulse Ox 93 L 05/21/20 21:24 - Orders/Labs/Meds Orders: Active Orders 24 hr Category Date Time Status COMPREHENSIVE METABOLIC PN,CMP [CHEM] Stat Lab 05/21/20 21:43 Ordered Labs: Laboratory Tests 05/21/20 Range/Units 21:56 WBC 9.4 (5.0-10.0) 10^3/uL RBC 4.97 (4.2-5.4) 10^6/uL Hgb 14.4 D (12.0-16.0) g/dL Hct 43.7 (37.0-47.0) % MCV 87.9 D (80-100) fL MCH 29.0 (27.0-34.0) pg MCHC 33.0 (33.0-35.0) g/dL Plt Count 328 (150-450) 10^3/uL Neut % (Auto) 62.4 (42.2-75.2) % Lymph % (Auto) 27.3 (20.5-50.1) % Ford % (Auto) 6.7 (2-8) % Eos % (Auto) 3.3 H (1.0-3.0) % Baso % (Auto) 0.3 (0.0-1.0) % Meds: Medications Discontinued Medications Generic Name Dose Route Start Last Admin Trade Name Freq PRN Reason Stop Dose Admin Amoxicillin/Clavulanate Potassium 1 tab 05/21/20 22:22 Augmentin 875 Mg/125 Mg PO 05/21/20 22:23 ONETIME ONE Methylprednisolone Sodium Succinate 125 mg 05/21/20 22:20 Solu-Medrol IM 05/21/20 22:21 ONETIME ONE Departure - Departure Time of Disposition: 22:24 Disposition: Home, Self-Care 01 Condition: Fair Clinical Impression: COPD exacerbation Otitis media Qualifiers: Otitis media type: serous Chronicity: acute Laterality: bilateral Recurrence: non-recurrent Qualified Code(s): H65.03 - Acute serous otitis media, bilateral - Discharge Information *PRESCRIPTION DRUG MONITORING PROGRAM REVIEWED*: Not Applicable *COPY OF PRESCRIPTION DRUG MONITORING REPORT IN PATIENT KATHARINE: Not Applicable Instructions: Otitis Media, Adult, [id number], Chronic Obstructive Pulmonary Disease Exacerbation, [id number] Forms: ED Department Discharge Care Plan Goals: The patient was advised of the examination, lab and x-ray results during the visit. The patient was given an oral dose of Augmentin and an injection of SoluMedrol while in the ED. The patient was discharged with a script for Augmentin (500/125) to take 1 by mouth 2 times per day for 10 days and Prednisone (20 mg) #10 to take 2 by mouth daily for 5 days. If the patient has any additional symptoms or concerns, the patient should visit her primary care facility or return to the emergency department. Sepsis Event Note (ED) - Evaluation Sepsis Screening Result: No Definite Risk - Focused Exam Vital Signs: Vital Signs Temp Pulse Resp BP Pulse Ox 05/21/20 21:24 36.6 C 100 18 126/82 93 L - My Orders Last 24 Hours: My Active Orders 05/21/20 21:43 COMPREHENSIVE METABOLIC PN,CMP [CHEM] Stat - Assessment/Plan Last 24 Hours: My Active Orders 05/21/20 21:43 COMPREHENSIVE METABOLIC PN,CMP [CHEM] Stat
--- NOTE | 2020-05-21 22:12 | CR ---
PROCEDURE INFORMATION: Exam: XR Chest, 2 Views Exam date and time: 05/21/2020 9:46 PM Age: 50 years old Clinical indication: Shortness of breath TECHNIQUE: Imaging protocol: XR of the chest Views: 2 views. COMPARISON: CR Chest 2V 05/16/2019 7:51 PM FINDINGS: Lungs: Unremarkable. No consolidation. Pleural space: Unremarkable. No pleural effusion. No pneumothorax. Heart/Mediastinum: Unremarkable. No cardiomegaly. Bones/joints: Age appropriate. IMPRESSION: 1. No active disease of the chest. 2. No significant interval change when compared to the CR Chest 2V 05/16/2019 7:51 PM.
[2020-05-21] MEDS ORDERED: methylPREDNISolone Sodium Succinate 125 MG/2 ML SDV IM ONE (22:20)
[2020-05-21] MEDS ORDERED: Amoxicillin/Clavulanate K 875-125 MG Tab PO ONE (22:22)
[2020-05-21 22:24] LABS: ANION GAP 12.3 mEq/L (7-13); CHLORIDE,CL 104 mmol/L (98-107); SODIUM,NA 140 mmol/L (136-145)
== END 2020-05-21 22:52 | disposition home or self-care (01) ==
LOC: DL.ED 21:09
DX: J44.1 Chronic obstructive pulmonary disease with (acute) exacerbation (principal); H65.03 Acute serous otitis media, bilateral; F17.210 Nicotine dependence, cigarettes, uncomplicated; Z79.899 Other long term (current) drug therapy
CPT/HCPCS: 36415; 71046; 80053; 85025; 96372; 99285; A9270; J2930

== ENCOUNTER 2020-07-22 17:24 | Emergency (ER) | payer OTHER ==
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
[2020-07-22 18:26] LABS: ANION GAP 15.8 mEq/L (7-13); CHLORIDE,CL 104 mmol/L (98-107); SODIUM,NA 141 mmol/L (136-145)
--- NOTE | 2020-07-22 18:45 | CR ---
PROCEDURE INFORMATION: Exam: XR Chest, 1 View Exam date and time: 07/22/2020 6:35 PM Age: 50 years old Clinical indication: Shortness of breath; Additional info: Short of breath with chest pain TECHNIQUE: Imaging protocol: XR of the chest Views: 1 view. COMPARISON: CR Chest 2V 05/21/2020 9:46 PM FINDINGS: Lungs: Unremarkable. No consolidation. Pleural space: Unremarkable. No pleural effusion. No pneumothorax. Heart/Mediastinum: Unremarkable. No cardiomegaly. Bones/joints: Unremarkable. IMPRESSION: No acute findings.
[2020-07-22] MEDS ORDERED: methylPREDNISolone Sodium Succinate 125 MG/2 ML SDV IVPUSH ONE (18:55)
[2020-07-22] MEDS ORDERED: cefTRIAXone 1 GM in Sodium Chloride 0.9% 50 ML IV ONE (18:55)
[2020-07-22 19:34] VITALS: BP 123/105; PULSE 100
== END 2020-07-22 19:40 | disposition home or self-care (01) ==
LOC: DL.ED 17:24
DX: J44.1 Chronic obstructive pulmonary disease with (acute) exacerbation (principal); E66.9 Obesity, unspecified; Z68.43 Body mass index [BMI] 50.0-59.9, adult; Z79.899 Other long term (current) drug therapy
CPT/HCPCS: 36415; 71045; 80053; 80305-QW; 81001; 84484; 85025; 93005; 96365; 96375; 99285-25; J0696; J2930; J7050

== ENCOUNTER 2020-12-08 18:25 | Emergency (ER) | payer OTHER ==
[2020-12-08] MEDS ORDERED: Bacitracin Oint 1 GM U/D Packet TOP ONE (18:53)
[2020-12-08] MEDS ORDERED: Lidocaine 1% with EPINEPHrine 1:100,000 20 ML MDV INJECT ONE (18:53)
--- NOTE | 2020-12-08 20:14 | EDM.PDOC ---
ED HPI GENERAL MEDICAL PROBLEM - General Chief Complaint: Bite:Animal, Insect Stated Complaint: LEFT LEG BIT BY DOG Time Seen by Provider: 12/08/20 19:05 Source of Information: Reports: Patient History Limitations: Reports: No Limitations - History of Present Illness INITIAL COMMENTS - FREE TEXT/NARRATIVE: This 50 yo female patient reports to the ED with a dog bite to her left posterior calf. The patient reports she was "just walking home" when the dog bit her. Onset: Today Duration: Minutes: Location: Reports: Neck, Lower Extremity, Right Quality: Reports: Ache Severity: Moderate Improves with: Reports: None Worsens with: Reports: None Context: Reports: Trauma Left Lower Leg Pain Score (Numeric/FACES): 5 - Related Data Allergies Allergy/AdvReac Type Severity Reaction Status Date / Time No Known Allergies Allergy Verified 12/08/20 18:34 Home Meds: Home Meds Albuterol [Proair HFA] 2 puff INH Q4HR PRN 01/01/18 [History] Albuterol [Proventil Neb Soln] 2.5 mg .XX Q4HR PRN 01/01/18 [History] Gabapentin [Neurontin] 300 mg PO DAILY 05/16/19 [History] Tiotropium [Spiriva HandiHaler] 1 inh INH DAILY 05/16/19 [History] Fluticasone Propion/Salmeterol [Wixela 500-50 Inhub] 1 puff IH BID 07/22/20 [History] Past Medical History HEENT History: Reports: None Cardiovascular History: Reports: None Respiratory History: Reports: Asthma, COPD Gastrointestinal History: Reports: None 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 History: Reports: None [employer]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: Musculoskeletal History: Reports: Back Pain, Chronic Neurological History: Reports: None Psychiatric History: Reports: None Endocrine/Metabolic History: Reports: None Hematologic History: Reports: None Immunologic History: Reports: None Oncologic (Cancer) History: Reports: None Dermatologic History: Reports: None - Infectious Disease History Infectious Disease History: Reports: None - Past Surgical History Respiratory Surgical History: Reports: None GI Surgical History: Reports: None Musculoskeletal Surgical History: Reports: None Social & Family History - Family History Family Medical History: No Pertinent Family History - Tobacco Use Tobacco Use Status *Q: Current Every Day Tobacco User Years of Tobacco use: 25 Packs/Tins Daily: 0.3 - Caffeine Use Caffeine Use: Reports: Coffee Caffeine Use Comment: States 3 NoS energy drinks during an 8hr work day. - Alcohol Use Date of Last Drink: 12/08/20 - Recreational Drug Use Recreational Drug Use: No ED ROS GENERAL - Review of Systems Review Of Systems: Comprehensive ROS is negative, except as noted in HPI. ED EXAM, ANIMAL BITE - Physical Exam Exam: See Below General Appearance: Alert, WD/WN, Mild Distress Eye Exam: Bilateral Eye: EOMI, Normal Inspection, PERRL Ears: Normal External Exam, Normal Canal, Hearing Grossly Normal, Normal TMs Nose: Normal Inspection, Normal Mucosa, No Blood Throat/Mouth: Normal Inspection, Normal Lips, Normal Teeth, Normal Gums, Normal Oropharynx, Normal Voice, No Airway Compromise Head: Atraumatic Neck: Normal Inspection, Supple, Non-Tender, Full Range of Motion Respiratory/Chest: No Respiratory Distress, Lungs Clear, Normal Breath Sounds, No Accessory Muscle Use, Chest Non-Tender Cardiovascular: Normal Peripheral Pulses, Regular Rate, Rhythm, No Edema, No Gallop, No JVD, No Murmur, No Rub Extremities: Leg Pain (left posterior calf laceration) ED ANIMAL BITE PROCEDURES - Laceration/Wound Repair Left Posterior Leg Lac/Wound Length In cm: 12 Appearance: Subcutaneous Distal NVT: Neuro & Vascular Intact Anesthetic Type: Local Local Anesthesia - Lidocaine (Xylocaine): 1% with EPI Local Anesthetic Volume: Other (10) Skin Prep: Chlorhexidine (Hibiciens), Saline Exploration/Debridement/Repair: Wound Explored, In a Bloodless Field, Wound Margins Revised, Multiple Flaps Aligned Closed With: Sutures Suture Size: 3-0 # of Sutures: 22 Suture Type: Prolene, Interrupted, Simple Suture Size: 3-0 # of Sutures: 3 Repaired With: Vicryl Drain Placement: No Sterile Dressing Applied: Nurse Tetanus Status Addressed: Yes Complications: No Course - Vital Signs Last Recorded V/S: Last Vital Signs Temp 36.3 C 12/08/20 18:34 Pulse 104 H 12/08/20 18:34 Resp 16 12/08/20 18:34 BP 127/69 12/08/20 18:34 Pulse Ox 98 12/08/20 18:34 - Orders/Labs/Meds Meds: Medications Discontinued Medications Generic Name Dose Route Start Last Admin Trade Name Freq PRN Reason Stop Dose Admin Bacitracin 1 dose 12/08/20 18:53 12/08/20 19:07 Bacitracin Oint 1 Gm TOP 12/08/20 18:54 1 dose ONETIME ONE Administration Lidocaine/Epinephrine 20 ml 12/08/20 18:53 12/08/20 19:07 Xylocaine 1% With Epinephrine 1:100,000 INJECT 12/08/20 18:54 10 ml ONETIME ONE Administration Departure - Departure Time of Disposition: 20:14 Disposition: Home, Self-Care 01 Condition: Fair Clinical Impression: Dog bite of left calf Qualifiers: Encounter type: initial encounter Qualified Code(s): S81.852A - Open bite, left lower leg, initial encounter; W54.0XXA - Bitten by dog, initial encounter - Discharge Information *PRESCRIPTION DRUG MONITORING PROGRAM REVIEWED*: Not Applicable *COPY OF PRESCRIPTION DRUG MONITORING REPORT IN PATIENT KATHARINE: Not Applicable Instructions: Animal Bite, Adult, [id number] Care Plan Goals: The patient was advised of the examination results during the visit. The wound margins were well approximated during the visit. The patient should keep the area clean and dry over the next 48 hours. The patient should have the sutures removed in 10-14 days. The patient was given an oral dose of Augmentin while in the ED and discharged with a script for Augmentin (500/125) to take 1 by mouth 3 times per day for 10 days. If the patient has any additional symptoms or concerns, the patient should either return to the emergency department or visit her primary care facility. Sepsis Event Note (ED) - Evaluation Sepsis Screening Result: No Definite Risk - Focused Exam Vital Signs: Vital Signs Temp Pulse Resp BP Pulse Ox 12/08/20 18:34 36.3 C 104 H 16 127/69 98
[2020-12-08 20:15] VITALS: BP 129/111; PULSE 108
[2020-12-08] MEDS ORDERED: Amoxicillin/Clavulanate K 500-125 MG Tab PO ONE (20:16)
== END 2020-12-08 20:23 | disposition home or self-care (01) ==
LOC: DL.ED 18:25
DX: S81.852A Open bite, left lower leg, initial encounter (principal); J44.9 Chronic obstructive pulmonary disease, unspecified; F17.210 Nicotine dependence, cigarettes, uncomplicated; W54.0XXA Bitten by dog, initial encounter
CPT/HCPCS: 12004; 99283; 99283-25; A9270-GY

== ENCOUNTER 2024-09-11 06:02 | Day surgery (SDC) | payer OTHER, MEDICAID ==
[2024-09-11] MEDS ORDERED: Midazolam 1 MG/ML 2 ML SDV ONE (06:07)
[2024-09-11] MEDS ORDERED: fentaNYL 100 MCG/2 ML SDV IV ONE (06:08)
[2024-09-11] MEDS ORDERED: Midazolam 1 MG/ML 2 ML SDV IV ONE (06:08)
[2024-09-11] MEDS ORDERED: fentaNYL 100 MCG/2 ML SDV ONE (06:08)
[2024-09-11] MEDS: fentaNYL 100 MCG/2 ML SDV IV ONE ×2 (07:11)
[2024-09-11] MEDS: Midazolam 1 MG/ML 2 ML SDV IV ONE ×5 (07:12→07:20)
[2024-09-11] MEDS: Dextrose 5%-0.45% NaCl 1,000 ML IV SCH (07:39)
[2024-09-11 08:28] VITALS: BP 115/73; PULSE 70
== END 2024-09-11 09:00 | disposition home or self-care (01) ==
LOC: DL.ENDO 06:02
PROVIDERS: ATTEND Internal Medicine Gastroenterology
DX: Z12.11 Encounter for screening for malignant neoplasm of colon (principal); J44.89 Other specified chronic obstructive pulmonary disease; F17.210 Nicotine dependence, cigarettes, uncomplicated
CPT/HCPCS: 45378; J2250; J3010; J7799

== ENCOUNTER 2025-10-03 17:10 | Emergency (ER) | payer MEDICAID, OTHER ==
[2025-10-03 19:43] VITALS: BP 149/75; PULSE 76
[2025-10-03] MEDS: Ketorolac 30 MG/ML SDV IM ONE (19:57)
== END 2025-10-03 20:06 | disposition home or self-care (01) ==
LOC: DL.ED 17:10
DX: M77.32 Calcaneal spur, left foot (principal); J44.89 Other specified chronic obstructive pulmonary disease; Z79.899 Other long term (current) drug therapy
CPT/HCPCS: 73610-LT; 96372; 99283; J1885